=== PATIENT | male | born 2000 ===

== ENCOUNTER 2022-06-17 12:26 | Outpatient (CLI) | payer BC, SELFPAY ==
[2022-06-17 13:21] LABS: Strep A DNA Probe* NOT DETECTED (Not Detectd)
== END 2022-06-17 12:27 | disposition home or self-care (01) ==
LOC: NFLDUCREF 12:26
PROVIDERS: Visit Provider Nurse Practitioner Family
DX: J02.9 Acute pharyngitis, unspecified (principal)
CPT/HCPCS: 87651